=== PATIENT | female | born 1980 ===

== ENCOUNTER → 2023-05-23 | Outpatient (REF) | LOC: M LAB 11:52 | PROVIDERS: ATTEND Nurse Practitioner Adult Health | DX: Z02.89 Encounter for other administrative examinations (principal) ==

== ENCOUNTER → 2023-06-18 | Outpatient (REF) | LOC: M EMP 09:27 | PROVIDERS: ATTEND Family Medicine | DX: Z11.52 Encounter for screening for COVID-19 (principal) ==

== ENCOUNTER → 2023-08-12 | Outpatient (REF) | LOC: M EMP 07:59 | PROVIDERS: ATTEND Family Medicine | DX: Z11.52 Encounter for screening for COVID-19 (principal) ==

== ENCOUNTER → 2023-09-24 | Outpatient (REF) | LOC: M EMP 10:16 | PROVIDERS: ATTEND Family Medicine | DX: Z53.9 Procedure and treatment not carried out, unspecified reason (principal) ==